=== PATIENT | male | born 1955 | race Caucasian/White ===

== ENCOUNTER 2017-12-16 14:56 | Emergency (ER) | payer MEDICARE, BC ==
[2017-12-16] MEDS ORDERED: Ketorolac INJ* 30 MG/ML 1 ML VIAL IM ONE (16:56)
[2017-12-16] MEDS ORDERED: Dexamethasone IV* 4 MG/ML 1 ML (4 MG) IM ONE (16:56)
--- NOTE | 2017-12-16 18:06 | RAD ---
Indication: Back pain. CT of the cervical spine was obtained in the axial plane. Sagittal and coronal reconstructed images were obtained. The skull base demonstrates no evidence of fracture. Mastoid air cells are well aerated. The C1 ring is intact. There is no fracture noted. Degenerative changes of the atlantoaxial joint is noted. There is disc space narrowing at C3-C4 noted. Disc space scarring at C5-C6, C6-C7 and C7-T1 is noted. No fracture is identified. The lung apices are unremarkable. IMPRESSION: No fracture of the cervical spine is noted. Mild degenerative disc disease is noted at multiple levels.
--- NOTE | 2017-12-16 18:07 | RAD ---
Indication: Upper back pain. CT of the thoracic spine was obtained in the axial plane. Sagittal and coronal reconstructed images were obtained. No compression fracture of the thoracic spine is noted. There is spondylitic ridge at T6-T7, T7-T8, T8-T9, T9-T10. Sclerotic lesions are noted at L1 and T10. These are likely bone islands. Lung pizarro were visualized are grossly unremarkable. IMPRESSION: Multilevel degenerative disc disease without evidence of fracture. Sclerotic lesions at L1 and T10 are likely bone islands.
--- NOTE | 2017-12-16 18:39 | ED ---
Back Pain - HPI Summary HPI Summary: 62-year-old male presents with upper back pain and right arm pain for the past couple days. He states he woke up with this pain. Denies any injury. He has been lifting a lot of things over his head. He has a history of shoulder separation on this side after accident. She denies any chest pain or shortness of breath. He denies any tearing pain. Daughter states yesterday his right hand was cold but it is not cold at the moment. Capillary refill is normal at the moment. He also admits to tingling down the ulnar aspect of his right arm into the index through pinky fingers. He denies any numbness in his thumb. He denies any weakness. No loss of bowel or bladder saddle anesthesias. No fevers. Does have a history of back issues. Took Flexeril and Vicodin for pain with minimal relief. He was seen at ER a day ago. has follow up with primary tomorrow. - History of Current Complaint Chief Complaint: EDBackInjuryPain Stated Complaint: BACK/RT ARM PAIN Time Seen by Provider: 12/16/17 16:45 Pain Intensity: 8 - Allergies/Home Medications Allergies/Adverse Reactions: Allergies Allergy/AdvReac Type Severity Reaction Status Date / Time No Known Allergies Allergy Verified 12/16/17 15:01 PMH/Surg Hx/FS Hx/Imm Hx Endocrine/Hematology History: Denies: Hx Anticoagulant Therapy, Hx Diabetes Cardiovascular History: Reports: Hx Angina, Hx Coronary Artery Disease - 60% no stents, Hx Hypercholesterolemia Denies: Hx Hypertension, Hx Myocardial Infarction, Hx Valvular Heart Disease Respiratory History: Reports: Hx Chronic Obstructive Pulmonary Disease (COPD) Denies: Hx Asthma - Surgical History Surgery Procedure, Year, and Place: Cardiac catherization (November 2014) Infectious Disease History: No Infectious Disease History: Denies: Traveled Outside the [place] in Last 30 Days - Family History Known Family History: Positive: Hypertension - Social History Alcohol Use: Rare Substance Use Type: Reports: None Smoking Status (MU): Light Every Day Tobacco Smoker Review of Systems Negative: Fever Negative: Chest Pain Negative: Shortness Of Breath Positive: Myalgia - back pain and right arm pain Positive: Paresthesia - right arm All Other Systems Reviewed And Are Negative: Yes Physical Exam Triage Information Reviewed: Yes Vital Signs On Initial Exam: Initial Vitals Temp Pulse Resp BP Pulse Ox 97.7 F 70 18 106/74 97 12/16/17 14:57 12/16/17 14:57 12/16/17 14:57 12/16/17 14:57 12/16/17 14:57 Vital Signs Reviewed: Yes Appearance: Positive: Well-Appearing Skin: Positive: Warm, Dry Head/Face: Positive: Normal Head/Face Inspection Eyes: Positive: Normal, Conjunctiva Clear Respiratory/Lung Sounds: Positive: Clear to Auscultation, Breath Sounds Present Cardiovascular: Positive: Normal, RRR Musculoskeletal: Positive: Strength/ROM Intact - right shoulder, elbow and wrist , Other - tenderness over right side at C6 through T2 of back. Nontender over olecranon process on her right elbow. Good cloud automation tester strength. Capillary refill less than 2 seconds. Sensation grossly intact. neg reese impingement, neg yearson. Neurological: Positive: Normal Psychiatric: Positive: Normal Diagnostics - Vital Signs Vital Signs Temp Pulse Resp BP Pulse Ox 12/16/17 14:57 97.7 F 70 18 106/74 97 - Laboratory Lab Statement: Any lab studies that have been ordered have been reviewed, and results considered in the medical decision making process. - CT cervical CT Interpretation: Positive (See Comments) - IMPRESSION: No fracture of the cervical spine is noted. Mild degenerative disc disease is noted at multiple levels. CT Interpretation Completed By: Radiologist thoracic CT Interpretation: Positive (See Comments) - IMPRESSION: Multilevel degenerative disc disease without evidence of fracture. Sclerotic lesions at L1 and T10 are likely bone islands. CT Interpretation Completed By: Radiologist Back Pain Course/Dx - Course Course Of Treatment: 62-year-old male presents with upper back pain and right arm pain for the past couple days. He states he woke up with this pain. Denies any injury. He has been lifting a lot of things over his head. He has a history of shoulder separation on this side after accident. She denies any chest pain or shortness of breath. He denies any tearing pain. Daughter states yesterday his right hand was cold but it is not cold at the moment. Capillary refill is normal at the moment. He also admits to tingling down the ulnar aspect of his right arm into the index through pinky fingers. He denies any numbness in his thumb. He denies any weakness. No loss of bowel or bladder saddle anesthesias. No fevers. Does have a history of back issues. Took Flexeril and Vicodin for pain with minimal relief. He was seen at ER a day ago. has follow up with primary tomorrow. On exam tenderness over right side at C6 through T2. Full range of motion shoulder. Nontender over olecranon process on her right elbow. Good cloud automation tester strength. Capillary refill less than 2 seconds. Sensation grossly intact. CT shows degenerative changes. Spoke with Dr. todd and said that with CT results can just follow-up with primary. We'll try different muscle relaxer and steroid. Patient has follow up tomorrow. Patient understands agrees plan. - Diagnoses Differential Diagnosis/HQI/PQRI: Positive: Herniated Disc, Strain, Sprain Provider Diagnoses: Back pain, Arm paresthesia, right Discharge - Sign-Out/Discharge Documenting (check all that apply): Discharge/Admit/Transfer - Discharge Plan Condition: Stable Disposition: HOME Prescriptions: Lidocaine PATCH 5%* [Lidoderm 5% Patch*] 1 patch TRANSDERM DAILY #5 patch Methocarbamol TAB* [Robaxin 500 MG TAB*] 750 mg PO TID PRN #12 tab PRN Reason: Pain methylPREDNISolone [Medrol Dosepak 4 MG*] 4 mg PO .SEE ELOY INSTRUCTION #1 packet Patient Education Materials: Back Pain (ED) Referrals: Session Yeyo MILLER [Primary Care Provider] - Luc Gray MD [Medical Doctor] - Additional Instructions: Follow directions on package for Medrol pack Take muscle relaxers three times a day, stop flexeril and start robaxin Apply lidocaine patches to area for up to 12 hours in one 24 hour period Use ibuprofen or Tylenol for pain every 6 hours ice/heat area, move as much as possible Follow up with primary within 5 days Return to ED if develop any new or worsening symptoms - Billing Disposition and Condition Condition: STABLE Disposition: HOME
[2017-12-16 19:18] VITALS: BP 112/71
== END 2017-12-16 19:17 | disposition home or self-care (01) ==
LOC: ED 14:56
DX: M54.9 Dorsalgia, unspecified (principal); M79.601 Pain in right arm; R20.0 Anesthesia of skin; F17.210 Nicotine dependence, cigarettes, uncomplicated
CPT/HCPCS: 72125; 72128; 96372; 99282; J1100; J1885

== ENCOUNTER 2024-07-08 13:43 | Inpatient (IN) ==
[2024-07-08 14:43] LABS: Urine Appearance Clear; Urine Bilirubin Negative (Negative); Urine Blood Negative (Negative); Urine Color Light-Yellow; Urine Glucose Negative (Negative); Urine Ketones Negative (Negative); Urine Nitrite Negative (Negative); Urine Protein Negative (Negative); Urine Specific Gravity 1.012 (1.002-1.030); Urine Urobilinogen Negative (Negative); Urine pH 6.5 (5.0-8.0)
[2024-07-08 15:15] LABS: Urine Benzodiazepine Screen Presumptive Positive (None Detect); Urine Cannabinoids Screen Presumptive Positive (None Detect); Urine Opiates Screen None Detected (None Detect)
[2024-07-08 15:32] LABS: ABS Basophils 0.1 10^3/uL (0.0-0.1); ABS Eosinophils 0.3 10^3/uL (0.0-0.5); ABS Monocytes 0.5 10^3/uL (0.0-1.1); ABS Neutrophils 3.7 10^3/uL (1.5-7.6); Eosinophil % 5.1 %; Hematocrit 42.7 % (38-53); Hemoglobin 14.4 g/dL (13.2-16.3); Lymphocyte % 29.8 %; Mean Corpuscular Hgb Conc 33.7 g/dL (31-36); Mean Corpuscular Volume 89.1 fL (80-97); Mean Platelet Volume 7.6 fL (7.5-11.2); Platelet Count 258 10^3/uL (150-450); Red Blood Count 4.79 10^6/uL (4.06-5.63); Red Cell Distribution Width 13.1 % (12-17); White Blood Count 6.6 10^3/uL (3.6-10.2)
[2024-07-08 15:55] LABS: ALT 29 U/L (7-52); AST 20 U/L (13-39); Acetaminophen < 15 mcg/mL; Albumin 4.4 g/dL (3.2-5.2); Albumin/Globulin Ratio 1.9 (1-3); Alcohol, S < 13 mg/dL (<13); Alkaline Phosphatase 100 U/L (35-149); Anion Gap 2 mmol/L (2-16); Blood Urea Nitrogen 11 mg/dL (6-24); CO2 Carbon Dioxide 27 mmol/L (22-32); Calcium 9.4 mg/dL (8.6-10.3); Chloride 110 mmol/L (101-111); Creatinine, Serum 0.79 mg/dL (0.67-1.17); Globulin 2.3 g/dL (2-4); Glucose 86 mg/dL (70-100); Lithium 0.56 mmol/L (0.6-1.2); Potassium 4.3 mmol/L (3.5-5.0); Salicylate < 2.50 mg/dL (<30); Sodium 139 mmol/L (135-145); Total Bilirubin 0.4 mg/dL (0.2-1.0); Total Protein 6.7 g/dL (6.4-8.9); eGFR CKD-EPI 97.4 (>60)
[2024-07-08 16:09] LABS: TSH Ultra Thyroid Stim Horm 0.01 mcIU/mL (0.34-5.60)
[2024-07-08 17:02] LABS: Free T4 1.83 ng/dL (0.61-1.12)
[2024-07-08] MEDS ORDERED: Al Hydrox/Mg Hydrox/Simet LIQ 30 ML UDC PO PRN (18:14)
[2024-07-08] MEDS ORDERED: Nicotine GUM 2MG FRUIT FLAVOR PO PRN (19:00)
[2024-07-08 21:09] LABS: Free T3 4.95 pg/mL (2.5-3.9)
[2024-07-09] MEDS: Vitamin THERAPEUTIC TAB PO SCH (07:42)
[2024-07-09 08:25] LABS: HDL Cholesterol 35.2 mg/dL
[2024-07-09] MEDS: CMC:Lithium Carb ER 300 mg TAB(NF) PO SCH (20:01)
[2024-07-10] MEDS: CMC:FLUTICAS/UMECLI/VILANT 100-62.5-25 MDI (NF) INH SCH (09:02)
[2024-07-12 09:16] VITALS: BP 112/65
== END 2024-07-12 19:47 | disposition home or self-care (01) | DRG 880 ==
LOC: ED 13:43 → EDHOLD 17:04 → BSU 17:57
PROVIDERS: ADMIT Psychiatry & Neurology Psychiatry; ATTEND Psychiatry & Neurology Psychiatry